=== PATIENT | male | born 1965 | race Caucasian/White ===

== ENCOUNTER 2021-11-10 07:44 | Day surgery (SDC) | payer MEDICAID, SELFPAY ==
[~2021-11-10] VITALS: Ht 185.4 cm; Wt 72.6 kg
[2021-11-10] MEDS ORDERED: MEPERIDINE 100 MG INJ. 100 MG/ML VIAL ONE (09:55)
[2021-11-10] MEDS ORDERED: MIDAZOLAM HCL 5 MG/5 ML VIAL ONE ×2 (09:55→10:04)
[2021-11-10 13:24] VITALS: BP_SYST 147
== END 2021-11-10 11:50 | disposition home or self-care (01) ==
LOC: SDS 07:44 → SMU 07:44 → SDS 11:50
PROVIDERS: ATTEND Internal Medicine Gastroenterology
DX: K62.5 Hemorrhage of anus and rectum (principal); D12.5 Benign neoplasm of sigmoid colon; D12.3 Benign neoplasm of transverse colon; D12.0 Benign neoplasm of cecum; D64.9 Anemia, unspecified; K64.8 Other hemorrhoids; I10 Essential (primary) hypertension; M81.0 Age-related osteoporosis without current pathological fracture; Z20.822 Contact with and (suspected) exposure to COVID-19; Z79.899 Other long term (current) drug therapy
CPT/HCPCS: 36415; 45380; 45381; 45385; 87426; 88305; 99152; 99153; G0378; J2175; J2250; U0003; 45384